=== PATIENT | female | born 1940 | race Caucasian/White ===

== ENCOUNTER 2018-03-10 16:40 | Emergency (ER) | payer MEDICARE, OTHER ==
[~2018-03-10] VITALS: Ht 170.2 cm; Wt 90.7 kg
[~2018-03-10 16:40] MED LIST: FLECAINIDE ACE100 MG PO; GABAPENTIN300 MG PO; GABAPENTIN600 MG; LIOTHYRONINE SO5 MCG PO; METOPROLOL SUCC25 MG PO; SAVAYSA PO; SYNTHROID88 MCG PO; TRIAMTERENE-HC1 EAC2 PO; ULTRAM 50MG50 MG PO; Z.0.LOVAZA1 GM PO; Z.0.SYNTHROID88 MCG PO; Z.2.METFORMIN HCL500 PO; maxide PO
[2018-03-10] MEDS ORDERED: LIDOCAINE HCL 1% LOCAL INJ 20 ML VIAL INJ ONE (17:45)
[2018-03-10] MEDS ORDERED: NEOMYCIN/POLYMYX/BACITR OINT 0.9 GM PKT TOP ONE (17:45)
[2018-03-10] MEDS ORDERED: ACETAMINOPHEN 325 MG TAB PO STA (18:04)
--- NOTE | 2018-03-10 19:00 | Diagnostic Imaging Report ---
PROCEDURE:HAND RIGHT 3 VIEWS AP \T\ LAT COMPARISON:None. INDICATIONS:LACERATION TO RIGHT 4TH AND 5TH DIGITS, FALL FINDINGS: 3 views of the left hand (AP, lateral, and oblique). Limited examination, patient is unable to extend her fingers at the MCP joints. There are no fractures, dislocations, lytic or blastic lesions. There are degenerative changes at the DIP joints and at the basilar joint of the thumb. The soft-tissues are unremarkable. CONCLUSION: No acute fracture or dislocation Dictated by: Erwin Perez M.D. on 03/10/2018 at 19:04 Electronically approved by: Erwin Perez M.D. on 03/10/2018 at 19:04
--- NOTE | 2018-03-10 19:04 | Diagnostic Imaging Report ---
PROCEDURE:X-RAY LEFT HAND, THREE OR MORE VIEWS COMPARISON:None. INDICATIONS:FALL, LEFT 3RD DIGIT SWOLLEN, 3RD-5TH LEFT DIGITS FUSED TOGETHER FINDINGS: 3 views of the left hand (AP, lateral, and oblique). Limited examination. There has been surgical fusion at the PIP joints of the middle, ring, and pinky fingers. The patient is unable to extend the fingers. There are no fractures, dislocations, lytic or blastic lesions. The soft-tissues are unremarkable. Degenerative changes at the DIP joints and at the basilar joint of the thumb. Indeterminate 9 mm lucent lesion in the distal radius with well-defined margins. CONCLUSION: Limited examination. No evidence of fracture or dislocation. Indeterminate 9 mm lucency in the distal radius. Recommend comparison with prior radiographs to insure stability of this lesion. If there are no prior radiographs, consider nonemergent MRI of the wrist for further evaluation. Dictated by: Erwin Perez M.D. on 03/10/2018 at 19:09 Electronically approved by: Erwin Perez M.D. on 03/10/2018 at 19:09
[2018-03-10 19:24] VITALS: BP 117/55
== END 2018-03-10 19:41 | disposition home or self-care (01) ==
LOC: ER 16:40
DX: S61.214A Laceration without foreign body of right ring finger without damage to nail, initial encounter (principal); S61.216A Laceration without foreign body of right little finger without damage to nail, initial encounter; S61.212A Laceration without foreign body of right middle finger without damage to nail, initial encounter; W01.0XXA Fall on same level from slipping, tripping and stumbling without subsequent striking against object, initial encounter; Y92.008 Other place in unspecified non-institutional (private) residence as the place of occurrence of the external cause
CPT/HCPCS: 12002; 73130 ×2; 99284; J2001

== ENCOUNTER 2019-10-01 06:49 | Observation (INO) | payer MEDICARE, OTHER ==
--- NOTE | 2019-09-27 13:57 | Diagnostic Imaging Report ---
EXAMINATION: CHEST 2 VIEWS INDICATION: Pre-operative COMPARISON: None FINDINGS: LINES/TUBES:Cardiac Loop recorder. LUNGS:The lungs are well-inflated. No focal consolidation or pulmonary edema. PLEURA:No pleural effusion or pneumothorax. MEDIASTINUM:The cardiomediastinal silhouette appears normal in size and shape. BONES/SOFT TISSUES:No acute osseous injury. ABDOMEN:No free air under the diaphragm. Partially visualized lumbar spine fusion hardware. IMPRESSION: No focal pneumonia or pulmonary edema. Signed by: Abiola Chacon MD on 09/27/2019 1:54 PM
[2019-09-27 14:12] LABS: ANION GAP 13.5 mmol/L (8-16); CALCIUM 9.6 mg/dL (8.4-10.2); CREATININE, SERUM 1.01 mg/dL (0.57-1.11); POTASSIUM 4.5 mmol/L (3.5-5.1)
[2019-10-01] VITALS: BP 112/56
[~2019-10-01] VITALS: Ht 170.2 cm; Wt 90.7 kg
[~2019-10-01 06:49] MED LIST changes: +XARELTO20 MG PO
[2019-10-01] MEDS ORDERED: BUPIVACAINE 7.5MG/ML /DEXTROSE 82.5MG/ML 2 ML AMP INJ ONE (07:10)
--- OUTSIDE RECORDS SUMMARY | 2019-10-01 07:16 | XMS REPORT ---
Author Author [facility] Address Unknown Phone Unavailable Care Team Providers Care Senior Project Engineer Name Role Phone SHENA LECHUGA Unavailable Unavailable Terese GRANADOS Unavailable Unavailable Payers Payer Name Policy Type Policy Number Effective Date Expiration Date Problems This patient has no known problems. Allergies, Adverse Reactions, Alerts Allergy Name Allergy Type Status Severity Reaction(s) Onset Date Inactive Date Treating Clinician Comments morphine DA Active U 2019-05-28 00:00:00 latex DA Active SV 2019-05-28 00:00:00 Penicillins DA Active SV 2019-05-07 00:00:00 Sulfa (Sulfonamide Antibiotics) DA Active SV 2019-05-07 00:00:00 hydrocodone DA Active SV 2019-05-07 00:00:00 adhesive tape DA Active SV 2019-05-07 00:00:00 Medications This patient has no known medications. Results Test Description Test Time Test Comments Text Results Atomic Results Result Comments CHEST 2 VIEWS 2019-09-27 13:53:00 [facility] [address] [place], [place] [address] Patient Name: OSKAR KIRK MR #: [id number] : 1940 Age/Sex: 79/F Req #: [id number] Adm Physician: Ordered by: SHENA LECHUGA MD Report #: [id number] Location: OR Room/Bed: Procedure: [id number] DX/CHEST 2 VIEWS Exam Date: 09/27/19 Exam Time: 1320 REPORT STATUS: Signed EXAMINATION: CHEST 2 VIEWS INDICATION: Pre-operative COMPARISON: None FINDINGS: LINES/TUBES:Cardiac Loop recorder. LUNGS:The lungs are well-inflated. No focal consolidation or pulmonary edema. PLEURA:No pleural effusion or pneumothorax. MEDIASTINUM:The cardiomediastinal silhouette appears normal in size and shape. BONES/SOFT TISSUES:No acute osseous injury. ABDOMEN:No free air under the diaphragm. Partially visualized lumbar spine fusion hardware. IMPRESSION: No focal pneumonia or pulmonary edema. Signed by: Shawn Barrera MD on 09/27/2019 1:54 PM Dictated By: SHAWN BARRERA MD 1357 Transcribed By: DONNA on 09/27/19 1354 COPY TO: SHENA LECHUGA MD SCR MAMM BILATERAL MARCELLO CAD DIGITAL 2019-08-17 13:46:16 - SCR MAMM BILATERAL MARCELLO CAD DIGITALBILATERAL DIGITAL SCREENING MAMMOGRAM 3D/2D WITH CAD: 08/13/2019CLINICAL: Asymptomatic. Digital breast tomosynthesis was performed in addition to routine CC and MLO views. Current mammographic images were evaluated by either a [employer] M-Vu or a [employer] ImageChecker CAD (computer aided detection system). Comparison is made to exams dated 07/25/2018 mammogram, 06/29/2017 mammogram, and 06/23/2016 mammogram - [facility] There are scattered fibroglandular tissues in both breasts. No suspicious mass, architectural distortion, malignant type calcification, or lymph node abnormality detected. Breast architecture is stable compared to prior exams.IMPRESSION: NEGATIVEThere is no mammographic evidence of malignancy. Resume annual screening mammography in one year. Radha Escalona M.D. ar/penrad:08/17/2019 13:46:16 Senior Software Systems Engineer: Fang ALVARADO, [facility]FWletter sent: BIRADS 1-2 Normal Mammogram BI-RADS: 1 Negative - XR FLUOROSCOPY 0-60 MIN 2019-05-31 09:32:00 Patient Name: OSKAR KIRK Unit No: [id number] EXAMS: CPT CODE: [id number] XR FLUOROSCOPY 0-60 MIN 04877 EXAMINATION: Intraoperative fluoroscopic guidance HISTORY: LT. HIP INJECTION FINDINGS: Intraoperative fluoroscopic assistance was provided. A left hip arthrogram in progress. A needle is identified along the medial border of the left femoral neck. Contrast is seen within the left hip joint. Please also refer to the procedure report for further details. Radiation: 2.4 mGy was used for 0.2 minutes. Location: W1 at 0932 Reported and signed by: Leon Ugalde MD CC: Anai Rodriguez MD Technologist: Deandre Blum Time: DAP (Gy m2): Air Kerma (mGy): Trscr Dt/Tm: 05/31/2019 (0932) by:[email or web address] Printed Date/Time: 05/31/2019 (0935) Name: OSKAR KIRK [facility] Phys: Anai Owens MD [address] : 1940 Age: 79 Sex: [place] [address] Loc: P.SRG Exam Date: 05/28/2019 Status: [facility] PH: FAX: PAGE 1 Signed Report GLUBED 2019-05-28 12:50:00 GLUBED (test code=GLUBED) 120 MG/DL 70-105 BASIC METABOLIC [id number] 13:48:00* Test Item Value Reference Range Comments SODIUM (test code=NA) 146 MMOL/L 136-143 POTASSIUM (test code=K) 4.4 MMOL/L 3.5-5.1 CHLORIDE (test code=CL) 105 MMOL/L 98-107 CARBON DIOXIDE (test code=CO2) 29 mmol/L 24-31 GLUCOSE (test code=GLU) 142 mg/dL 70-104 BLOOD UREA NITROGEN (test code=BUN) 18.7 MG/DL 7.0-21.0 GLOMERULAR FILTRATION RATE (test code=GFR) >=60 max estimate >60 The estimated glomerular filtration rate is computed usingpatient race, age (>18), sex, and serum creatinine. If anyof the needed data elements are missing the Laboratory cannot compute an estimation of the glomerular filtration rate. CREATININE (test code=CREAT) 0.9 mg/dL 0.8-1.5 CALCIUM (test code=CA) 10.1 mg/dL 8.8-10.2 [id number] 13:12:00* Test Item Value Reference Range Comments HEMOGLOBIN (test code=HGB) 14.7 g/dL 14.5-20 [id number] 13:12:00* Test Item Value Reference Range Comments HEMATOCRIT (test code=HCT) 44.9 % 37.0-47.0 SCR MAMM BILATERAL MARCELLO CAD [id number] 17:59:08 - SCR MAMM BILATERAL MARCELLO CAD DIGITALBILATERAL DIGITAL SCREENING MAMMOGRAM 3D/2D WITH CAD: 07/25/2018CLINICAL: Asymptomatic. Digital breast tomosynthesis was performed in addition to routine CC and MLO views. Current mammographic images were evaluated by either a M[employer] M-Vu or an [employer] version 7.2 computer aided dete ction system. Comparison is made to exams dated 06/29/2017 mammogram, 06/23/2016 mammogram, and 05/23/2015 mammogram - [facility]. The tissue of both breasts is predominantly fatty. No suspicious mass, architectural distort ion, malignant type calcification, or lymph node abnormality detected. Breast a rchitecture is stable compared to prior exams. An implantable monitoring device is noted in the left breast.IMPRESSION: NEGATIVEThere is no mammographic evidenc e of malignancy. Resume annual screening mammography in one year. Roopa Andersen M.D. cc/:07/25/2018 17:59:08 Entry: - 07/26/2018 14:30:04Imaging Technologist: Josy ALVARADO, [facility]FWletter sent: BIRADS 1-2 Normal Mammogram BI-RADS: 1 NegativeHAND 3+ VIEWS [id number] 19:09:[address] [place], [place] [address] Patient Name: OSKAR KIRK MR #: [id number] : 1940 Age/Sex: 78/F Req #: [id number] [facility] Physician: Ordered by: BRIAN SONI NP Report #: [id number] Location: ER Room/Bed: Procedure: [id number] DX/HAND 3+ VIEWS LEFT Exam Da te: 03/10/18 Exam Time: 1840 REPORT STATUS: Sig regina PROCEDURE: X-RAY LEFT HAND, THREE OR MORE VIEWS COMPARISON: Non e. INDICATIONS: FALL, LEFT 3RD DIGIT SWOLLEN, 3RD-5TH LEFT DIGITS FUSED TOGETHER FINDINGS: 3 views of the left hand (AP, lateral, and obli que). Limited examination. There has been surgical fusion at the PIP joint s of the middle, ring, and pinky fingers. The patient is unable to extend the fingers. There are no fractures, dislocations, lytic or blastic lesion s. The soft-tissues are unremarkable. Degenerative changes at the DIP joints and at the basilar joint of the thumb. Indeterminate 9 mm lucent les ion in the distal radius with well-defined margins. CONCLUSION: Li mited examination. No evidence of fracture or dislocation. Indeterminate 9 mm lucency in the distal radius. Recommend comparison with prior radiographs to insure stability of this lesion. If there are no prior radiographs, co nsider nonemergent MRI of the wrist for further evaluation. Dictated b y: Candace Perez M.D. on 03/10/2018 at 19:09 Electronically approved by : Candace Perez M.D. on 03/10/2018 at 19:09 Dictated By: REBECA PEREZ MD 08 COPY TO: BRIAN SONI NP HAND 3+ VIEWS [id number] 19:04:00 [place] [address] Patient Name: OSKAR KIRK MR #: [id number] : 1940 Age/Sex: 78/F Req #: [id number] Adm Physician: Ordered by: BRIAN SONI NP Report #: [id number] Location: ER Room/Bed: Procedure: [id number] DX/HAND 3+ VIEWS RIGHT Exam D ate: 03/10/18 Exam Time: 1840 REPORT STATUS: Si gned PROCEDURE: HAND RIGHT 3 VIEWS AP T LAT COMPARISON: None. INDICATIONS: LACERATION TO RIGHT 4TH AND 5TH DIGITS, FALL FINDINGS: 3 views of the left hand (AP, lateral, and oblique). Limited examinati on, patient is unable to extend her fingers at the MCP joints. There ar e no fractures, dislocations, lytic or blastic lesions. There are degenerativ e changes at the DIP joints and at the basilar joint of the thumb. The soft-t issues are unremarkable. CONCLUSION: No acute fracture or dislocat ion Dictated by: Candace Perez M.D. on 03/10/2018 at 19:04 Electr onically approved by: Candace Perez M.D. on 03/10/2018 at 19:04 Dictated By: CANDACE PEREZ MD 03 Transcribed By: MEREDITH on 03/10/181903 COPY TO: BRIAN FRANCES NP
[2019-10-01] MEDS ORDERED: CELECOXIB 200 MG CAP ONE (07:23)
[2019-10-01] MEDS ORDERED: DEXAMETHASONE SOD PHOS 10 MG/1 ML VIAL ONE (07:23)
[2019-10-01] MEDS ORDERED: GABAPENTIN 300 MG CAP ONE (07:23)
[2019-10-01] MEDS ORDERED: VANCOMYCIN 1GM/NS 250 ML 250 ML ONE (07:24)
[2019-10-01] MEDS ORDERED: ROPIVACAINE 246.25 MG, EPINEPHRINE HCL 1:1000 1ML 0.5 MG, CLONIDINE HCL 0.08 MG, KETORO... INJ ONE ×5 (08:00)
[2019-10-01] MEDS ORDERED: VANCOMYCIN HCL 1,000 MG ONE (08:57)
[2019-10-01] MEDS ORDERED: BACITRACIN 50,000 UNIT VIAL ONE (08:57)
[2019-10-01] MEDS ORDERED: TRANEXAMIC ACID 1,000 MG/10 ML ML ONE (08:59)
[2019-10-01] MEDS ORDERED: SODIUM CHLORIDE 0.9% 500ML 500 ML ONE (09:19)
[2019-10-01] MEDS ORDERED: MORPHINE SULFATE/PF 1 MG/1 ML 10ML VIAL ONE (09:22)
[2019-10-01] MEDS ORDERED: KETOROLAC TROMETHAMINE 30 MG/ML VIAL IV PRN (11:15)
[2019-10-01] MEDS ORDERED: PROMETHAZINE HCL (IM) 25 MG/ML VIAL IM PRN (11:15)
[2019-10-01] MEDS ORDERED: DIPHENHYDRAMINE HCL INJ 50 MG/ML VIAL IM/IV PRN (11:15)
[2019-10-01] MEDS ORDERED: ACETAMINOPHEN 650 MG SUPP PR PRN (11:15)
[2019-10-01] MEDS ORDERED: ONDANSETRON HCL INJ 2MG/ML 2ML 2 MG/ML VIAL IV PRN (11:15)
[2019-10-01] MEDS ORDERED: HYDROCODONE/APAP 7.5MG-325MG 1 EA TAB PO PRN (11:15)
[2019-10-01] MEDS ORDERED: DOCUSATE SODIUM 100 MG CAP PO PRN (11:15)
[2019-10-01] MEDS ORDERED: HYDROCODONE/APAP 5MG-325MG TAB PO PRN (11:15)
--- NOTE | 2019-10-01 12:16 | Diagnostic Imaging Report ---
Exam: Pelvis 1 view Clinical history: Postop Findings: The patient is status post left total hip arthroplasty. The joint prosthesis is noted in its expected location. There is no evidence of acute fracture or malalignment. The soft tissue is unremarkable. Impression: 1. Status post left total hip arthroplasty with postoperative changes. Signed by: Dr. Bubba Cannon MD on 10/01/2019 12:13 PM
[2019-10-01] MEDS: ACETAMINOPHEN 1000 MG/100 ML IV SCH ×2 (15:00→22:30)
[2019-10-01] MEDS: VANCOMYCIN 1GM/NS 250 ML 250 ML IV SCH (15:39)
[2019-10-01] MEDS ORDERED: PROPOFOL IV EMULSION 10 MG/ML 20 ML VIAL ONE (18:26)
[2019-10-01] MEDS ORDERED: ONDANSETRON HCL INJ 2MG/ML 2ML 2 MG/ML VIAL ONE (18:26)
[2019-10-01] MEDS ORDERED: LIDOCAINE HCL 2% LOCAL INJ 5 ML SDV VIAL INJ ONE (18:26)
[2019-10-01] MEDS ORDERED: MIDAZOLAM HCL 2 MG/2 ML VIAL ONE (18:51)
[2019-10-01] MEDS ORDERED: FENTANYL CITRATE/PF 100MCG/2 ML INJ ONE (18:51)
[2019-10-01] MEDS ORDERED: CELECOXIB 100 MG CAP PO SCH (19:00)
--- NOTE | 2019-10-01 19:11 | NUR ---
WALKING ROUNDS PERFORMED, RECEIVED PT LAYING SEMI FOWLERS IN BED, AAOX3, NO S/SX OF DISTRESS NOTED. (L) HIP DRESSING CDI, ABDUCTOR PILLOW BETWEEN LEGS. LEFT PT LAYING SEMI FOWLERS IN BED, BED IN LOW LOCKED POSITION, SIDE RAILS UPX2, CALL LIGHT AND PHONE WITHIN REACH.
[2019-10-01 20:00] VITALS: BP 112/56
[2019-10-01] MEDS: ASPIRIN 325 MG TAB PO SCH (20:19)
[2019-10-01 20:20] VITALS: BP 112/56
[2019-10-01] MEDS ORDERED: ZOLPIDEM TARTRATE 5 MG TAB PO PRN (21:00)
[2019-10-01] MEDS: SODIUM CHLORIDE 0.9% 1000ML 1,000 ML IV SCH ×2 (21:12→22:58)
[2019-10-01 22:20] VITALS: BP 112/56
[2019-10-02] VITALS: BP 99/53
[2019-10-02] MEDS ORDERED: MELATONIN3 MG PO (02:57)
[2019-10-02] MEDS: ACETAMINOPHEN 1000 MG/100 ML IV SCH ×2 (03:17→10:01)
[2019-10-02] MEDS: VANCOMYCIN 1GM/NS 250 ML 250 ML IV SCH (03:49)
[2019-10-02 04:00] VITALS: BP 103/55
[2019-10-02] MEDS: SODIUM CHLORIDE 0.9% 1000ML 1,000 ML IV SCH (06:09)
[2019-10-02 06:25] LABS: HEMATOCRIT 35.4 % (34.2-44.1); HEMOGLOBIN 11.6 g/dL (12.0-16.0)
[2019-10-02 06:33] VITALS: BP 103/55
[2019-10-02 08:00] VITALS: BP 103/54
[2019-10-02] MEDS ORDERED: LEVOTHYROXINE SODIUM 88 MCG TAB PO SCH (08:00)
[2019-10-02] MEDS ORDERED: LIOTHYRONINE SODIUM 5 MCG TAB PO SCH (08:00)
--- NOTE | 2019-10-02 08:06 | NUR ---
PT ALERT RESP EVEN NO DISTRESS NOTED AT THIS TIME , PT ABLE TO MAKE NEEDS KNOWN, PT HAS FAMILY MEMBER AT BEDSIDE. CALL LIGHT IN REACH.
--- NOTE | 2019-10-02 08:44 | NUR ---
DR QUEVEDO OFFICE PREARRANGED FOLLOWING DISCHARGE PLAN OF: RETURNING HOME [address] [address] HOME HEALTH WITH [facility] CONFIRMED WITH [employer] [phone] DME 3 IN ONE COMMODE. AND ROLLING WALKER WITH WHEELS. PROVIDED BY [employer] [phone], HAS A ROLLATER MAY REFUSE STANDARD ROLLING WALKER WHEN ARRIVE FOR DELIVERY TORRES SIGNED AND ON CHART COPY LEFT WITH PATIENT GAVE CARD FOR QUESTIONS AND OR CONCERNS.
[2019-10-02] MEDS ORDERED: CELECOXIB 200 MG CAP PO SCH (09:00)
[2019-10-02] MEDS ORDERED: METOPROLOL SUCCINATE 25 MG TAB XL PO SCH (09:00)
[2019-10-02] MEDS ORDERED: GABAPENTIN 300 MG CAP PO SCH (09:00)
[2019-10-02 09:40] VITALS: BP 103/54
[2019-10-02] MEDS: ASPIRIN 325 MG TAB PO SCH (10:02)
--- NOTE | 2019-10-02 11:08 | Consultation ---
DATE OF CONSULTATION: 10/02/2019 REASON FOR CONSULTATION: Postop medical management. HISTORY OF PRESENT ILLNESS: The patient is a 79-year-old lady, status post left hip arthroplasty for end-stage osteoarthritis of the left hip. She is doing well postoperatively with minimal pain. She denies any fever, chills, nausea, vomiting, headache, shortness of breath, or dizziness. PAST MEDICAL HISTORY: Diabetes, hypertension, atrial fibrillation, hypothyroidism, osteoarthritis, sleep apnea. MEDICATIONS: See MAR. ALLERGIES: TETRACYCLINE, HYDROCODONE, MORPHINE, SULFA, PENICILLIN, TAPE, AND LATEX. SOCIAL HISTORY: Nonsmoker, nondrinker. Lives at home by herself. FAMILY HISTORY: Hypertension. PHYSICAL EXAMINATION: VITAL SIGNS: Temperature 96.2, pulse 65, blood pressure 99/53, sats 96% on room air. GENERAL: She is no apparent distress, wearing a BiPAP. NECK: Supple. CARDIOVASCULAR: Regular rate and rhythm. LUNGS: Clear to auscultation bilaterally. ABDOMEN: Good bowel sounds. Soft, nontender. EXTREMITIES: No clubbing or cyanosis. The bandages are dry and intact. EXTREMITIES: No clubbing, cyanosis, or edema. NEUROLOGIC: Nonfocal. ASSESSMENT AND PLAN: 1. Status post left hip arthroplasty. Continue physical therapy. 2. Left hip pain, continue pain control. 3. Sleep apnea. Continue with her CPAP. 4. Obesity. Continue diet. 5. Diabetes. Continue with monitoring. 6. Hypertension. We will continue to monitor. 7. History of atrial fibrillation. We will restart her home medicines at discharge. 8. Hypothyroidism. Continue with her medicine. 9. Anemia, check a CBC. Please see hospital chart for full details. MD SIMA Remy/MIGUEL A /[id number]
[2019-10-02] MEDS ORDERED: ONDANSETRON HCL 4 MG ORAL DISINTEGRATING TAB PO PRN (11:15)
[2019-10-02 12:00] VITALS: BP 93/59
--- NOTE | 2019-10-02 13:00 | NUR ---
PT DISCHARGED HOME , PRESCRIPTIONS WERE SENT TO PHARMACY, PT EDUCATED TO FOLLOW UP WITH PCP, AND ORTHOPEDIC DOCTOR, IV SITE REMOVED, NO SWELLING NO REDNESS TO SITE.
[2019-10-02] MEDS ORDERED: ACETAMINOPHEN 1000 MG/100 ML IV PRN (18:00)
--- NOTE | 2019-10-02 19:26 | Operative Report ---
DATE OF PROCEDURE: 10/01/2019 SURGEON: Joe Campbell MD CERTIFIED LACTATION COUNSELOR: Corbin William, certified PA. PREOPERATIVE DIAGNOSIS: Osteoarthritis, left hip. POSTOPERATIVE DIAGNOSIS: Osteoarthritis, left hip. PROCEDURE: Left total hip arthroplasty. INDICATIONS: The patient is a 79-year-old lady, who has a long history of back and hip pain. She has been through 4 previous back surgeries. She had a diagnostic injection in her left hip, which she stated relieved her symptoms. She would now like to proceed with definitive intervention. The risks and benefits of a left total hip replacement have been discussed. She states she understands and wishes to proceed. PROCEDURE IN DETAIL: The patient was brought to the operating room and placed under general anesthetic. She received prophylactic antibiotics and tranexamic acid in the holding area. She was positioned in the right lateral decubitus position. Her left hip was prepped and draped in a sterile manner. A preoperative time-out was performed. A posterior approach was made to the left hip. Abundant subcutaneous adipose tissue was encountered. Hemostasis was obtained with electrocautery. A deep self-retaining Charnley retractor was placed. The posterior capsule was carefully exposed. Care was taken to avoid injury to the sciatic nerve. The short external rotators were partially released. A capsulotomy was performed. A large joint effusion was encountered. The hip was dislocated and an oscillating saw was used to resect the femoral head. Complete loss of articular cartilage was noted. Acetabular retractors were carefully placed. A large hypertrophic labral remnant was excised. The true floor of the acetabulum was established with a 46 mm reamer. The socket was then sequentially reamed up to 57 mm. A Sue Biomet 58 mm outer diameter socket was impacted into place. Good fixation was obtained. Fixation was augmented with a single 20 mm screw placed into the ilium. Throughout this case, the wound was repeatedly irrigated on several different occasions with a shower tip pulsatile lavage. Additional irrigation with a spray mixture of diluted vancomycin and polymyxin spray was used. A highly cross-linked polyethylene liner with a 36 mm inner diameter was then seated into place. Care was taken to make sure that there was no evidence of soft tissue interposition. The socket was packed with a moistly soaked lap sponge and then attention was directed towards the proximal femur. A box cutting osteotome was really not necessary. The cortex was thin and the cancellous bone was osteoporotic. The Sue [employer]omet Taperloc broaches were carefully impacted. It took a size 15 stem to have good canal fill and rotational stability. A trial reduction was performed. A standard 36 mm head appeared to provide appropriate soft tissue balancing, stability, and oriental orthodox of limb length. The trial implants were removed. The hip was further irrigated with a shower tip pulsatile lavage. The Taperloc stem was then seated into place. A standard 36 mm head was then carefully seated onto a clean and dry stem. A final reduction was performed. The capsule was carefully repaired with interrupted #2 Ethibond. A 100 mL premixed pericapsular injection was then placed into the surrounding soft tissue. The deep fascia was closed after sprinkling 500 mg of vancomycin powder into the deep portion of the wound. A #2 Ethibond was used to close the fascia. The skin was closed with subcuticular Vicryl and dilip. A sterile Aquacel bandage was applied. The patient was returned to the supine position, extubated, and transported to the recovery room in stable condition. Blood loss was about 100 mL. All needle and sponge counts were correct. Joe Campbell MD DR/MIGUEL A /[id number]
== END 2019-10-02 12:40 | disposition home health service (06) ==
LOC: OR 06:49 → PACU V 11:14 → MED/SURG 18:23
PROVIDERS: ADMIT Specialist; ATTEND Specialist
DX: M16.12 Unilateral primary osteoarthritis, left hip (principal); E11.9 Type 2 diabetes mellitus without complications; I51.9 Heart disease, unspecified; E11.40 Type 2 diabetes mellitus with diabetic neuropathy, unspecified
CPT/HCPCS: 27130; 36415 ×3; 71046; 72170; 80048; 82948 ×2; 85014; 85018; 86850; 86900; 86920; 97116; 97161; 97530 ×2; G0378 ×2; J0131 ×2; J0171; J1100; J1885 ×2; J2001; J2250; J2405; J2704; J2795; J3010; J3370 ×3; J7030; J7040; C1713; C1734

== ENCOUNTER 2020-02-10 07:14 | Emergency (ER) | payer MEDICARE, OTHER ==
[~2020-02-10] VITALS: Ht 170.2 cm; Wt 94.3 kg
[~2020-02-10 07:14] MED LIST changes: +MELATONIN3 MG PO
[2020-02-10] MEDS ORDERED: PANTOPRAZOLE 40 MG 10ML VIAL IV STA (07:40)
[2020-02-10 08:26] LABS: BASOPHILS % 0.7 % (0.0-1.0); EOSINOPHILS # (AUTO) 0.3 (0.0-0.4); EOSINOPHILS % 5.1 % (0.0-6.0); HEMATOCRIT 44.6 % (34.2-44.1); HEMOGLOBIN 14.5 g/dL (12.0-16.0); LYMPHOCYTES # (AUTO) 2.2 (1.0-3.2); LYMPHOCYTES % 37.9 % (18.0-39.1); MEAN CORPUSCULAR HEMOGLOBIN 28.3 pg (28-32); MEAN CORPUSCULAR HGB CONC 32.5 g/dL (31-35); MEAN CORPUSCULAR VOLUME 86.9 fL (81-99); MONOCYTES # (AUTO) 0.6 (0.2-0.8); MONOCYTES % 9.5 % (4.4-11.3); NEUTROPHILS # (AUTO) 2.8 (2.1-6.9); NEUTROPHILS % 46.6 % (38.7-80.0); PLATELET COUNT 258 x10e3/uL (140-360); RED BLOOD COUNT 5.13 x10e6/uL (3.6-5.1); RED CELL DISTRIBUTION WIDTH 14.6 % (11.7-14.4)
[2020-02-10 08:38] LABS: INR 1.96; PROTHROMBIN TIME 23.7 seconds (11.9-14.5)
[2020-02-10 08:39] LABS: PARTIAL THROMBOPLASTIN TIME 31.5 seconds (23.8-35.5)
[2020-02-10 08:59] LABS: ALANINE AMINOTRANSFERASE 31 IU/L (0-55); ALBUMIN 3.5 g/dL (3.5-5.0); ALKALINE PHOSPHATASE 83 IU/L (40-150); ANION GAP 14.1 mmol/L (8-16); BLOOD UREA NITROGEN 15 mg/dL (7-26); BUN/CREATININE RATIO 14 (6-25); CALCIUM 9.6 mg/dL (8.4-10.2); CARBON DIOXIDE 24 mmol/L (22-29); CHLORIDE 108 mmol/L (98-107); CREATINE KINASE 62 IU/L (29-168); CREATININE, SERUM 1.07 mg/dL (0.57-1.11); EST GLOMERULAR FILTRATION RATE 50 ML/MIN (60-); GLUCOSE 198 mg/dL (74-118); POTASSIUM 4.1 mmol/L (3.5-5.1); SODIUM 142 mmol/L (136-145)
--- NOTE | 2020-02-10 09:11 | Emergency Department Note ---
History of Present Illnes History of Present Illness Chief Complaint: Abdominal Complaints History of Present Illness This is a 80 year old female PATIENT IN FROM HOME WITH COMPLAINTS OF CONSTIPATION; STATES HAS BEEN UNABLE TO HAVE A BOWEL MOVEMENT X 2 DAYS. She reports she tried to dig it out this am with her fingers but unsuccessful but says she is now bleeding, on Xarelto for a-fib. Reports no pain except rectal pain/fullness, feels like large stool is "right there" Historian: Patient Arrival Mode: Car [employer] Required: No Onset (how long ago): day(s) (2) Location: rectal Quality: pain/fullness Radiation: Reports non-radiation Severity: moderate Onset quality: gradual Timing of current episode: constant Progression: unchanged Chronicity: new Context: Denies recent illness Relieving factors: none Exacerbating factors: none Associated symptoms: Reports denies other symptoms Treatments prior to arrival: none Past Medical/Family History Physician Review I have reviewed the patient's past medical and family history. Any updates have been documented here. Past Medical History Recent Fever: No Clinical Suspicion of Infectio: No New/Unexplained Change in Ment: No Past Medical History: Hypertension, Diabetes, A-Fib Other Medical History: SLEEP APNEA Past Surgical History: Appendectomy, Hysterectomy, Hip Replacement, Back Surgery Other Surgery: 2004 LUMBAR FUSION cardiac ablation bladder suspension L ankle surgery loop recorder Social History Smoking Cessation: Never Smoker Counseling Performed: No Alcohol Use: None Any Illegal Drug Use: No TB Exposure/Symptoms: No Physically hurt or threatened: No Family History Family history of heart diseas: No Other Last Tetanus: ood Any Pre-Existing Lines (PICC,: No Is patient up to date on immun: Yes Last Flu: UTD Last Pneumovax: UTD Review of Systems Review of Systems Constitutional: Reports no symptoms EENTM: Reports no symptoms Cardiovascular: Reports no symptoms Respiratory: Reports no symptoms Gastrointestinal: Reports as per HPI, Reports constipation Genitourinary: Reports no symptoms Musculoskeletal: Reports no symptoms Integumentary: Reports no symptoms Neurological: Reports no symptoms Psychological: Reports no symptoms Endocrine: Reports no symptoms Hematological/Lymphatic: Reports no symptoms Physical Exam Related Data Allergies: Coded Allergies: Penicillins (Verified Allergy, Mild, RASH, 10/01/19) latex (Verified Allergy, Mild, RASH. ALLERGY TO LATEX GLOVES, 10/01/19) tetracycline (Verified Allergy, Mild, RASH, 11/30/11) Sulfa (Sulfonamide Antibiotics) (Unverified Allergy, Unknown, rash, 07/04/16) morphine (Verified Allergy, Unknown, 03/10/18) hydrocodone (Verified Adverse Reaction, Intermediate, VOMITING AND PASSING OUT, 10/02/19) Uncoded Allergies: TAPE (Allergy, Mild, RASH, 11/30/11) Triage Vital Signs Vital Signs Date Time Temp Pulse Resp B/P (MAP) Pulse Ox O2 Delivery O2 Flow Rate FiO2 02/10/20 07:22 97.9 67 18 142/82 95 Vital signs reviewed: Yes Physical Exam CONSTITUTIONAL Constitutional: Present well-developed, Present well-nourished HENT HENT: Present normocephalic, Present atraumatic, Present oropharynx clear/moist, Present nose normal HENT L/R: Present left ext ear normal, Present right ext ear normal EYES Eyes: Reports PERRL, Reports conjunctivae normal NECK Neck: Present ROM normal PULMONARY Pulmonary: Present effort normal, Present breath sounds normal CARDIOVASCULAR Cardiovascular: Present regular rhythm, Present heart sounds normal, Present capillary refill normal, Present normal rate GASTROINTESTINAL Abdominal: Present soft, Present nontender, Present bowel sounds normal, Present other (small amount of BRBPR at anus, large stool noted in vault - I gently manually disimpacted/broke up the large firm stool and she was able to have a good BM afterwards and feels totally relieved) GENITOURINARY Genitourinary: Present exam deferred SKIN Skin: Present warm, Present dry MUSCULOSKELETAL Musculoskeletal: Present ROM normal NEUROLOGICAL Neurological: Present alert, Present oriented x 3, Present no gross motor or sensory deficits PSYCHOLOGICAL Psychological: Present mood/affect normal, Present judgement normal Results Laboratory Result Diagram: 02/10/20 0805 Laboratory Laboratory Tests Test 02/10/20 08:05 White Blood Count 5.89 x10e3/uL (4.8-10.8) Red Blood Count 5.13 x10e6/uL (3.6-5.1) Hemoglobin 14.5 g/dL (12.0-16.0) Hematocrit 44.6 % (34.2-44.1) Mean Corpuscular Volume 86.9 fL (81-99) Mean Corpuscular Hemoglobin 28.3 pg (28-32) Mean Corpuscular Hemoglobin Concent 32.5 g/dL (31-35) Red Cell Distribution Width 14.6 % (11.7-14.4) Platelet Count 258 x10e3/uL (140-360) Neutrophils (%) (Auto) 46.6 % (38.7-80.0) Lymphocytes (%) (Auto) 37.9 % (18.0-39.1) Monocytes (%) (Auto) 9.5 % (4.4-11.3) Eosinophils (%) (Auto) 5.1 % (0.0-6.0) Basophils (%) (Auto) 0.7 % (0.0-1.0) Neutrophils # (Auto) 2.8 (2.1-6.9) Lymphocytes # (Auto) 2.2 (1.0-3.2) Monocytes # (Auto) 0.6 (0.2-0.8) Eosinophils # (Auto) 0.3 (0.0-0.4) Basophils # (Auto) 0.0 (0.0-0.1) Absolute Immature Granulocyte (auto 0.01 x10e3/uL (0-0.1) Prothrombin Time 23.7 seconds (11.9-14.5) Prothromb Time International Ratio 1.96 Activated Partial Thromboplast Time 31.5 seconds (23.8-35.5) Sodium Level 142 mmol/L (136-145) Potassium Level 4.1 mmol/L (3.5-5.1) Chloride Level 108 mmol/L (98-107) Carbon Dioxide Level 24 mmol/L (22-29) Anion Gap 14.1 mmol/L (8-16) Blood Urea Nitrogen 15 mg/dL (7-26) Creatinine 1.07 mg/dL (0.57-1.11) Estimat Glomerular Filtration Rate 50 ML/MIN (60-) BUN/Creatinine Ratio 14 (6-25) Glucose Level 198 mg/dL (74-118) Calcium Level 9.6 mg/dL (8.4-10.2) Total Bilirubin 0.6 mg/dL (0.2-1.2) Aspartate Amino Transf (AST/SGOT) 29 IU/L (5-34) Alanine Aminotransferase (ALT/SGPT) 31 IU/L (0-55) Alkaline Phosphatase 83 IU/L (40-150) Creatine Kinase 62 IU/L (29-168) Creatine Kinase MB 1.30 ng/mL (0-5.0) Troponin I < 0.001 ng/mL (0-0.300) Total Protein 7.0 g/dL (6.5-8.1) Albumin 3.5 g/dL (3.5-5.0) Globulin 3.5 g/dL (2.3-3.5) Albumin/Globulin Ratio 1.0 (0.8-2.0) Laboratory Tests Test 02/10/20 08:05 White Blood Count 5.89 x10e3/uL (4.8-10.8) Red Blood Count 5.13 x10e6/uL (3.6-5.1) Hemoglobin 14.5 g/dL (12.0-16.0) Hematocrit 44.6 % (34.2-44.1) Mean Corpuscular Volume 86.9 fL (81-99) Mean Corpuscular Hemoglobin 28.3 pg (28-32) Mean Corpuscular Hemoglobin Concent 32.5 g/dL (31-35) Red Cell Distribution Width 14.6 % (11.7-14.4) Platelet Count 258 x10e3/uL (140-360) Neutrophils (%) (Auto) 46.6 % (38.7-80.0) Lymphocytes (%) (Auto) 37.9 % (18.0-39.1) Monocytes (%) (Auto) 9.5 % (4.4-11.3) Eosinophils (%) (Auto) 5.1 % (0.0-6.0) Basophils (%) (Auto) 0.7 % (0.0-1.0) Neutrophils # (Auto) 2.8 (2.1-6.9) Lymphocytes # (Auto) 2.2 (1.0-3.2) Monocytes # (Auto) 0.6 (0.2-0.8) Eosinophils # (Auto) 0.3 (0.0-0.4) Basophils # (Auto) 0.0 (0.0-0.1) Absolute Immature Granulocyte (auto 0.01 x10e3/uL (0-0.1) Prothrombin Time 23.7 seconds (11.9-14.5) Prothromb Time International Ratio 1.96 Activated Partial Thromboplast Time 31.5 seconds (23.8-35.5) Sodium Level 142 mmol/L (136-145) Potassium Level 4.1 mmol/L (3.5-5.1) Chloride Level 108 mmol/L (98-107) Carbon Dioxide Level 24 mmol/L (22-29) Anion Gap 14.1 mmol/L (8-16) Blood Urea Nitrogen 15 mg/dL (7-26) Creatinine 1.07 mg/dL (0.57-1.11) Estimat Glomerular Filtration Rate 50 ML/MIN (60-) BUN/Creatinine Ratio 14 (6-25) Glucose Level 198 mg/dL (74-118) Calcium Level 9.6 mg/dL (8.4-10.2) Total Bilirubin 0.6 mg/dL (0.2-1.2) Aspartate Amino Transf (AST/SGOT) 29 IU/L (5-34) Alanine Aminotransferase (ALT/SGPT) 31 IU/L (0-55) Alkaline Phosphatase 83 IU/L (40-150) Creatine Kinase 62 IU/L (29-168) Total Protein 7.0 g/dL (6.5-8.1) Albumin 3.5 g/dL (3.5-5.0) Globulin 3.5 g/dL (2.3-3.5) Albumin/Globulin Ratio 1.0 (0.8-2.0) Laboratory Tests Test 02/10/20 08:05 White Blood Count 5.89 x10e3/uL (4.8-10.8) Red Blood Count 5.13 x10e6/uL (3.6-5.1) Hemoglobin 14.5 g/dL (12.0-16.0) Hematocrit 44.6 % (34.2-44.1) Mean Corpuscular Volume 86.9 fL (81-99) Mean Corpuscular Hemoglobin 28.3 pg (28-32) Mean Corpuscular Hemoglobin Concent 32.5 g/dL (31-35) Red Cell Distribution Width 14.6 % (11.7-14.4) Platelet Count 258 x10e3/uL (140-360) Neutrophils (%) (Auto) 46.6 % (38.7-80.0) Lymphocytes (%) (Auto) 37.9 % (18.0-39.1) Monocytes (%) (Auto) 9.5 % (4.4-11.3) Eosinophils (%) (Auto) 5.1 % (0.0-6.0) Basophils (%) (Auto) 0.7 % (0.0-1.0) Neutrophils # (Auto) 2.8 (2.1-6.9) Lymphocytes # (Auto) 2.2 (1.0-3.2) Monocytes # (Auto) 0.6 (0.2-0.8) Eosinophils # (Auto) 0.3 (0.0-0.4) Basophils # (Auto) 0.0 (0.0-0.1) Absolute Immature Granulocyte (auto 0.01 x10e3/uL (0-0.1) Prothrombin Time 23.7 seconds (11.9-14.5) Prothromb Time International Ratio 1.96 Activated Partial Thromboplast Time 31.5 seconds (23.8-35.5) Lab results reviewed: Yes Procedures Rectal Disimpaction Time out performed: Yes Indication: fecal impaction Procedural sedation: No Sedation/analgesia: none Technique: manual disimpaction Result: significant stool output Patient tolerated procedure: well Complications: bleeding (was bleeding prior to procedure, no active bleeding) Assessment & Plan Medical Decision Making MDM check CBC, chem, PT/PTT, T&S - r/o significant bleed, electrolyte abnl, admit Obs to follow CBC since pt on Xarelto Reassessment Reassessment Pt had a second BM and said she is no longer bleeding, feels well, wants to go home. Will RTED if bleeding recurs. I communicated with PCP, Dr Tiwari and pt will call him in am tomorrow for F/U Assessment & Plan Final Impression: (1) Hematochezia (2) Constipation Depart Disposition: HOME, SELF-CARE Last Vital Signs Date Time Temp Pulse Resp B/P (MAP) Pulse Ox O2 Delivery O2 Flow Rate FiO2 02/10/20 07:22 97.9 67 18 142/82 95 Home Meds Reported Medications Melatonin (MELATONIN) 3 Mg Tablet, 10 MG PO HS, TAB 10/02/19 Rivaroxaban (XARELTO) 20 Mg Tablet, 20 MG PO DAILY 09/28/19 Flecainide Acetate (FLECAINIDE ACETATE) 100 Mg Tablet, 50 MG PO BID, #60 TAB 07/04/16 Metoprolol Succinate (METOPROLOL SUCCINATE) 25 Mg Tab.er.24h, 25 MG PO BID 07/04/16 Tramadol Hcl* (ULTRAM 50MG*) 50 Mg Tab, 100 MG PO TID, TAB 04/28/16 Gabapentin (GABAPENTIN) 300 Mg Capsule, 600 MG PO TID, #60 CAP 04/28/16 Liothyronine Sodium (LIOTHYRONINE SODIUM) 5 Mcg Tablet, 15 MCG PO DAILY 04/28/16 Levothyroxine Sodium (Synthroid) 88 Mcg Tablet, 88 MCG PO DAILY 12/01/11 Medications in the ED Pantoprazole Sodium 40 mg ONCE STAT IV Last administered on 02/10/20at 08:51; Admin Dose 40 MG; Start 02/10/20 at 07:40; Stop 02/10/20 at 07:43; Status DC NICOLE BROOKE MD Feb 10, 2020 09:11
== END 2020-02-10 09:34 | disposition home or self-care (01) ==
LOC: ER 07:14
DX: K92.1 Melena (principal); K59.00 Constipation, unspecified; I10 Essential (primary) hypertension; E11.9 Type 2 diabetes mellitus without complications; I48.91 Unspecified atrial fibrillation; G47.30 Sleep apnea, unspecified
CPT/HCPCS: 36415; 80053; 82550; 82553; 84484; 85025; 85610; 85730; 86850; 86900; 99284; C9113

== ENCOUNTER → 2021-03-26 | Day surgery (SDC) | payer MEDICARE, OTHER ==
[2021-03-23 11:53] LABS: BASOPHILS % 0.5 % (0.0-1.0); EOSINOPHILS # (AUTO) 0.2 (0.0-0.4); EOSINOPHILS % 1.9 % (0.0-6.0); HEMOGLOBIN 15.1 g/dL (12.0-16.0); LYMPHOCYTES % 38.9 % (18.0-39.1); MEAN CORPUSCULAR HEMOGLOBIN 29.8 pg (28-32); MEAN CORPUSCULAR HGB CONC 33.6 g/dL (31-35); MEAN CORPUSCULAR VOLUME 88.8 fL (81-99); MONOCYTES # (AUTO) 0.8 (0.2-0.8); MONOCYTES % 10.1 % (4.4-11.3); NEUTROPHILS # (AUTO) 3.8 (2.1-6.9); NEUTROPHILS % 48.3 % (38.7-80.0); PLATELET COUNT 255 x10e3/uL (140-360); RED BLOOD COUNT 5.07 x10e6/uL (3.6-5.1); RED CELL DISTRIBUTION WIDTH 13.5 % (11.7-14.4)
[~2021-03-26] MED LIST changes: +CYTOMEL25 MCG PO; +LIDOCAINE HCL 2% LOCAL INJ 5 ML SDV VIAL INJ ONE; +METFORMIN HCL500 MG PO; +PROPOFOL IV EMULSION 10 MG/ML 20 ML VIAL ONE
[2021-03-26 10:30] VITALS: BP 136/54
== END | disposition home or self-care (01) ==
LOC: OR 06:55
PROVIDERS: ATTEND Internal Medicine Gastroenterology
DX: K44.9 Diaphragmatic hernia without obstruction or gangrene (principal); K21.9 Gastro-esophageal reflux disease without esophagitis; K29.50 Unspecified chronic gastritis without bleeding; E11.9 Type 2 diabetes mellitus without complications; E66.9 Obesity, unspecified; G47.33 Obstructive sleep apnea (adult) (pediatric); Z91.048 Other nonmedicinal substance allergy status; I48.91 Unspecified atrial fibrillation; Z68.32 Body mass index [BMI] 32.0-32.9, adult; Z91.040 Latex allergy status; Z88.5 Allergy status to narcotic agent; Z88.0 Allergy status to penicillin; Z88.2 Allergy status to sulfonamides; Z88.8 Allergy status to other drugs, medicaments and biological substances; Z98.84 Bariatric surgery status; Z01.810 Encounter for preprocedural cardiovascular examination; Z01.812 Encounter for preprocedural laboratory examination; Z20.822 Contact with and (suspected) exposure to COVID-19; Z95.810 Presence of automatic (implantable) cardiac defibrillator; Z79.84 Long term (current) use of oral hypoglycemic drugs
CPT/HCPCS: 36415 ×2; 43239; 82948; 85025; 93005; J2001; J2704; U0002

== ENCOUNTER → 2021-09-15 | Day surgery (SDC) | payer MEDICARE, OTHER ==
[2021-09-10 10:44] LABS: BASOPHILS # (AUTO) 0.1 (0.0-0.1); BASOPHILS % 0.9 % (0.0-1.0); EOSINOPHILS # (AUTO) 0.2 (0.0-0.4); EOSINOPHILS % 3.5 % (0.0-6.0); HEMATOCRIT 47.1 % (34.2-44.1); HEMOGLOBIN 15.5 g/dL (12.0-16.0); LYMPHOCYTES # (AUTO) 2.8 (1.0-3.2); LYMPHOCYTES % 40.2 % (18.0-39.1); MEAN CORPUSCULAR HGB CONC 32.9 g/dL (31-35); MEAN CORPUSCULAR VOLUME 91.3 fL (81-99); MONOCYTES # (AUTO) 0.7 (0.2-0.8); MONOCYTES % 9.7 % (4.4-11.3); NEUTROPHILS # (AUTO) 3.2 (2.1-6.9); NEUTROPHILS % 45.4 % (38.7-80.0); PLATELET COUNT 250 x10e3/uL (140-360); RED BLOOD COUNT 5.16 x10e6/uL (3.6-5.1); RED CELL DISTRIBUTION WIDTH 13.6 % (11.7-14.4)
[2021-09-10 11:10] LABS: ALBUMIN 3.5 g/dL (3.5-5.0); ALBUMIN/GLOBULIN RATIO 1.1 (0.8-2.0); ANION GAP 12.3 mmol/L (8-16); CALCIUM 9.7 mg/dL (8.4-10.2); CREATININE, SERUM 1.07 mg/dL (0.57-1.11); POTASSIUM 4.3 mmol/L (3.5-5.1)
[2021-09-15] VITALS (7 sets, daily range): BP systolic 101–134; BP diastolic 55–75
[~2021-09-15] VITALS: Ht 167.6 cm; Wt 90.7 kg
[~2021-09-15] MED LIST changes: +ALPRAZOLAM 0.5 MG TAB ONE; +CIPRO500 MG PO; +DICYCLOMINE; +DIPHENHYDRAMINE HCL 25 MG CAP ONE; +FENTANYL CITRATE/PF 100MCG/2 ML INJ ONE; +HEPARIN SOD (PORCINE) 1000 UNIT/ML 30ML ONE; +HEPARIN SOD/SOD CHLORIDE 2,000 ML ONE; +IOPAMIDOL 370 MG/ML 200 ML INFUS..BTL INJ ONE; +LIDOCAINE HCL 2% LOCAL 20 ML VIAL ONE; -LIDOCAINE HCL 2% LOCAL INJ 5 ML SDV VIAL INJ ONE; +MIDAZOLAM HCL 2 MG/2 ML VIAL ONE; +NITROGLYCERIN/D5W 200 MCG/ML 250 ML ONE; +PANTOPRAZOLE SO40 MG PO; -PROPOFOL IV EMULSION 10 MG/ML 20 ML VIAL ONE; +SODIUM CHLORIDE 0.9% 1000ML 1,000 ML ONE; +VERAPAMIL HCL 2.5 MG/ML 2 ML VIAL ONE; +ZOLPIDEM TARTRAT5 MG PO
== END | disposition home or self-care (01) ==
LOC: CATH LAB 12:13
PROVIDERS: ATTEND Internal Medicine Interventional Cardiology
DX: I25.118 Atherosclerotic heart disease of native coronary artery with other forms of angina pectoris (principal); R94.39 Abnormal result of other cardiovascular function study; I11.0 Hypertensive heart disease with heart failure; I50.22 Chronic systolic (congestive) heart failure; I48.0 Paroxysmal atrial fibrillation; E11.9 Type 2 diabetes mellitus without complications; E07.9 Disorder of thyroid, unspecified; Z88.1 Allergy status to other antibiotic agents; Z88.0 Allergy status to penicillin; Z88.2 Allergy status to sulfonamides; Z01.812 Encounter for preprocedural laboratory examination; Z20.822 Contact with and (suspected) exposure to COVID-19; Z79.82 Long term (current) use of aspirin; Z79.02 Long term (current) use of antithrombotics/antiplatelets; Z79.84 Long term (current) use of oral hypoglycemic drugs; Z79.899 Other long term (current) drug therapy; Z68.30 Body mass index [BMI] 30.0-30.9, adult; Z95.0 Presence of cardiac pacemaker; Z83.3 Family history of diabetes mellitus; Z82.49 Family history of ischemic heart disease and other diseases of the circulatory system
CPT/HCPCS: 36415; 76937; 80053; 83880; 85025; 93454; C1887; C1894; J1644; J2001; J2250; J3010; J7030; Q9967; U0002; 99152